=== PATIENT | female | born 1975 | race African-American/Black ===

== ENCOUNTER 2016-10-11 19:40 | Emergency (ER) | payer OTHER ==
[2016-10-11 19:46] VITALS: BP 124/75; PULSE 79; TEMP 97.9; BMI 31.1
--- NOTE | 2016-10-11 19:48 | PDOC ---
Rapid Medical Evaluation Time Seen by Provider: 10/11/16 19:42 Medical Evaluation: Allergies Allergy/AdvReac Type Severity Reaction Status Date / Time sulfamethoxazole Allergy Verified 06/24/13 19:20 [From Bactrim] trimethoprim [From Bactrim] Allergy Verified 06/24/13 19:20 10/11/16 19:42 I have performed a brief in-person evaluation of this patient. Ms Greene is a 41 yo F with no significant past medical history who presents to the ER with a complaint of sore throat. Pt started feeling ill 3 days ago but states the sore throat began 2 days ago Pt has had difficulty eating due to her throat pain She had noted blood tinged sputum (she denies cough) No changes in voice, no drooling Unsure if she has had a fever, did not take her temp Pertinent physical exam findings: Temp: 97.9 On examination, non tonsillar enlargement, pharynx injected Uvula midline, I have ordered the following: Rapid Strep The patient will proceed to [facility] for further evaluation.
--- NOTE | 2016-10-11 21:24 | PDOC ---
History of Present Illness - General Chief Complaint: Sore Throat Stated Complaint: SORE THROAT Time Seen by Provider: 10/11/16 19:42 History Source: Patient Exam Limitations: No Limitations - History of Present Illness Initial Comments: 10/11/16 21:19 c/o sore throat nasal congestion right ear pain. no meds taken [employer] no fever or chest pain . Timing/Duration: unsure (2-3 days) Past History - Past Medical History Allergies/Adverse Reactions: Allergies Allergy/AdvReac Type Severity Reaction Status Date / Time sulfamethoxazole Allergy Verified 10/11/16 19:43 [From Bactrim] trimethoprim [From Bactrim] Allergy Verified 10/11/16 19:43 Home Medications: Ambulatory Orders Triamcinolone Acetonide [Nasacort] 10.8 ml NS DAILY #1 bottle 10/11/16 Other medical history: denies - Psycho/Social/Smoking Cessation Hx Suicidal Ideation: No Smoking History: Never smoked Review of Systems - Review of Systems Able to Perform ROS?: Yes Is the patient limited Upper Sorbian proficient: No Constitutional: No: Symptoms Reported HEENTM: Yes: See HPI *Physical Exam - Vital Signs Last Vital Signs Temp Pulse Resp BP Pulse Ox 97.9 F 79 18 124/75 100 10/11/16 19:44 10/11/16 19:44 10/11/16 19:44 10/11/16 19:44 10/11/16 19:44 - Physical Exam General Appearance: Yes: Nourished, Appropriately Dressed HEENT: positive: EOMI, GUS, TMs Normal, Pharyngeal Erythema, Nasal Congestion ( post nasal drip), Other. negative: Tonsillar Exudate, Tonsillar Erythema Neck: positive: Supple. negative: Lymphadenopathy (R), Lymphadenopathy (L) Respiratory/Chest: positive: Lungs Clear, Normal Breath Sounds. negative: Chest Tender Cardiovascular: positive: Regular Rhythm, Regular Rate Gastrointestinal/Abdominal: positive: Normal Bowel Sounds, Soft Musculoskeletal: positive: Normal Inspection Extremity: positive: Normal Capillary Refill, Normal Inspection, Normal Range of Motion Integumentary: positive: Normal Color, Dry, Warm Neurologic: positive: Fully Oriented, Alert, Normal Mood/Affect, Normal Response , Motor Strength 5/5 ED Treatment Course - ADDITIONAL ORDERS Additional order review: 10/11/16 19:50 Group A Strep Rapid Antigen - Final Throat Medical Decision Making - Medical Decision Making 10/11/16 21:20 cc: sore throat, nasal congestion rapid strep is negative pt refused motrin will prescribe nasocort for congestion, post nasal drip *DC/Admit/Observation/Transfer Diagnosis at time of Disposition: Nasal sinus congestion Pharyngitis Qualifiers: Pharyngitis/tonsillitis etiology: unspecified etiology Qualified Code(s): J02.9 - Acute pharyngitis, unspecified - Discharge Dispostion Disposition: HOME Condition at time of disposition: Good - Prescriptions Prescriptions: Triamcinolone Acetonide [Nasacort] 10.8 ml NS DAILY #1 bottle - Patient Instructions Additional Instructions: gargle with warm salt water 4-5 times a day tea, honey and lemon is helpful for viruses in the throat take motrin 600mg every 6hrs for pain (over the counter ibuprofen, motrin or advil all the same) use the nasocort as directed follow with your medical doctor if not improving or worse in the next few days ice pops, jello,soft foods
== END 2016-10-11 21:27 | disposition home or self-care (01) ==
LOC: JERFT 19:40
DX: R09.89 Other specified symptoms and signs involving the circulatory and respiratory systems (principal); J02.9 Acute pharyngitis, unspecified
CPT/HCPCS: 87070; 87430; 99281-25

== ENCOUNTER 2017-02-04 11:16 | Emergency (ER) | payer OTHER ==
[2017-02-04 11:20] VITALS: BP 124/84; PULSE 60; TEMP 98.2; BMI 29.2
--- NOTE | 2017-02-04 11:43 | PDOC ---
History of Present Illness - General Chief Complaint: Urinary Problem Stated Complaint: urinary complaints Time Seen by Provider: 02/04/17 11:36 History Source: Patient Exam Limitations: No Limitations - History of Present Illness Initial Comments: 02/04/17 11:40 My Chief Complaint: pain with urination, frequency, urgency since yesterday History of Present Illness: She is a 41-year-old female with a history of urinary tract infections here today complaining of dysuria, frequency, hesitancy , and urgency since yesterday. Patient reports having her menstrual cycle presently. Patient denies any back pain, nausea, vomiting, or chills or fever. She denies any other symptoms. 02/04/17 12:02 Timing/Duration: getting worse Severity: moderate Associated Symptoms: reports: denies symptoms Past History - Past Medical History Allergies/Adverse Reactions: Allergies Allergy/AdvReac Type Severity Reaction Status Date / Time sulfamethoxazole Allergy Verified 02/04/17 11:17 [From Bactrim] trimethoprim [From Bactrim] Allergy Verified 02/04/17 11:17 Home Medications: Ambulatory Orders Ciprofloxacin [Cipro -] 250 mg PO BID #14 tablet 02/04/17 Other medical history: none - Psycho/Social/Smoking Cessation Hx Anxiety: No Suicidal Ideation: No Smoking History: Never smoked Have you smoked in the past 12 months: No Information on smoking cessation initiated: No Hx Alcohol Use: No Drug/Substance Use Hx: No Substance Use Type: None Review of Systems - Review of Systems Able to Perform ROS?: Yes Constitutional: No: Symptoms Reported HEENTM: No: Symptoms Reported Respiratory: No: Symptoms reported Cardiac (ROS): No: Symptoms Reported ABD/GI: No: Symptoms Reported : Yes: Dysuria, Frequency, Urgency. No: Other (hesitancy, has menses ) Musculoskeletal: No: Symptoms Reported Integumentary: No: Symptoms Reported Neurological: No: Symptoms reported *Physical Exam - Vital Signs Last Vital Signs Temp Pulse Resp BP Pulse Ox 98.2 F 60 18 124/84 100 02/04/17 11:18 02/04/17 11:18 02/04/17 11:18 02/04/17 11:18 02/04/17 11:18 - Physical Exam General Appearance: Yes: Appropriately Dressed Respiratory/Chest: positive: Lungs Clear, Normal Breath Sounds. negative: Chest Tender, Respiratory Distress Cardiovascular: positive: Regular Rhythm, Regular Rate, S1, S2 Gastrointestinal/Abdominal: positive: Normal Bowel Sounds, Soft. negative: Tender, Organomegaly, Distended, Guarding, Rebound, Tenderness, Hepatomegaly, Spleenomegaly Musculoskeletal: negative: CVA Tenderness, CVA Tenderness (R), CVA Tenderness (L ) Integumentary: positive: Normal Color Neurologic: positive: Alert, Normal Response, Responsive Medical Decision Making - Medical Decision Making 02/04/17 12:04 She is a 41-year-old female with a history of urinary tract infections here today complaining of dysuria, frequency, hesitancy, and urgency since yesterday. Patient reports having her menstrual cycle presently. Patient denies any back pain, nausea, vomiting, or chills or fever. She denies any other symptoms. 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
[2017-02-04 12:17] LABS: URINE APPEARANCE CLOUDY; URINE BILIRUBIN NEGATIVE (NEGATIVE); URINE COLOR YELLOW; URINE GLUCOSE (UA) NEGATIVE (NEGATIVE); URINE KETONE NEGATIVE (NEGATIVE); URINE NITRITE NEGATIVE (NEGATIVE); URINE UROBILINOGEN NEGATIVE E.U./dl (0.2-1.0)
[2017-02-04 12:18] LABS: URINE BLOOD 2+ (NEGATIVE); URINE LEUK ESTERASE 2+ (NEGATIVE); URINE PROTEIN 1+ (NEGATIVE)
[2017-02-04 12:32] LABS: URINE RBC 24 /hpf (0-3); URINE WBC 655 /hpf (3-5)
== END 2017-02-04 12:38 | disposition home or self-care (01) ==
LOC: JERFT 11:16
DX: N30.00 Acute cystitis without hematuria (principal)
CPT/HCPCS: 81003; 81015; 84703; 87086; 99281-25

== ENCOUNTER 2017-10-02 02:50 | Emergency (ER) | payer BC ==
--- NOTE | 2017-10-02 03:07 | PDOC ---
History of Present Illness - General Stated Complaint: ALLERGIC RX Time Seen by Provider: 10/02/17 02:59 - History of Present Illness Initial Comments: 10/02/17 03:19 42 yo F with no significant pmh who presents with airway irritation. Pt. reports acute onset SOB, difficulty swallowing, and hoarseness 1 hour [employer] following Bactrim use. Patient reports Bactim allergy, and inadvertently took 1 Bactrim DS tablet mistaking it for Ibuprofen. Immediately following ingestion she noticed development of widespread rash, and sensation of "throat swelling." She denies wheezing, lightheadedness, vision disturbance. Does not own epinephrine pen. Denies CP, cough, abdominal pain, urinary complaints, diarrhea , constipation, weakness, sensory changes. Past History - Past Medical History Allergies/Adverse Reactions: Allergies Allergy/AdvReac Type Severity Reaction Status Date / Time sulfamethoxazole Allergy Verified 10/02/17 03:08 [From Bactrim] trimethoprim [From Bactrim] Allergy Verified 10/02/17 03:08 Home Medications: Ambulatory Orders Diphenhydramine [Benadryl Capsule -] 25 mg PO TID #9 capsule 10/02/17 Prednisone [Deltasone] 40 mg PO DAILY #10 tablet MDD 2 tab 10/02/17 Ranitidine [Zantac -] 150 mg PO ONCE #5 tablet MDD 1 tab 10/02/17 - Suicide/Smoking/Psychosocial Hx Smoking History: Never smoked Have you smoked in the past 12 months: No Hx Alcohol Use: No Drug/Substance Use Hx: No Substance Use Type: None Review of Systems - Review of Systems Comments:: 10/02/17 03:01 GENERAL/CONSTITUTIONAL: No fever or chills. No weakness. HEAD, EYES, EARS, NOSE AND THROAT: No change in vision. No ear pain or discharge. No sore throat.- CARDIOVASCULAR: No chest pain or shortness of breath RESPIRATORY: + SOB. No cough, wheezing, or hemoptysis. GASTROINTESTINAL: No nausea, vomiting, diarrhea or constipation. GENITOURINARY: No dysuria, frequency, or change in urination. MUSCULOSKELETAL: No joint or muscle swelling or pain. No neck or back pain. SKIN: + Rash NEUROLOGIC: No headache, vertigo, loss of consciousness, or change in strength/ sensation. ENDOCRINE: No increased thirst. No abnormal weight change HEMATOLOGIC/LYMPHATIC: No anemia, easy bleeding, or history of blood clots. ALLERGIC/IMMUNOLOGIC: +hives *Physical Exam - Physical Exam Comments: 10/02/17 03:01 GENERAL: Awake, alert, and fully oriented, in no acute distress HEAD: No signs of trauma, normocephalic, atraumatic EYES: PERRLA, EOMI, sclera anicteric, conjunctiva clear ENT: Able to visualize soft palate and uvula, with absent laryngeal edema. Auricles normal inspection, hearing grossly normal, nares patent, oropharynx clear without. exudates. Moist mucosa. Absent tongue or mucosal swelling. NECK: Normal ROM, supple, no lymphadenopathy, JVD, or masses LUNGS: No distress, speaks full sentences, clear to auscultation bilaterally HEART: Regular rate and rhythm, normal S1 and S2, no murmurs, rubs or gallops, peripheral pulses normal and equal bilaterally. EXTREMITIES : Normal inspection, Normal range of motion, no edema. No clubbing or cyanosis. SKIN: Widespread urticarial rash on extremities, abdomen, trunk. Warm, Dry, normal turgor, Medical Decision Making - Medical Decision Making 10/02/17 03:34 42 yo F with no significant pmh who presents acute onset SOB, difficulty swallowing, and hoarseness 1 hour [employer] following DS Bactrim ingestion. Pt. mistook Bactrim for Ibuprofen. Complaint of widespread rash, and sensation of "throat swelling." Denies wheezing, CP, cough, vision change, abdominal pain, urinary complaints, diarrhea, constipation, lightheadedness, weakness, sensory changes. Does not own epinephrine pen. Hemodynamically stable. No evidence of tongue swelling, stridor, wheezing, or laryngeal edema, uvula midline, and absent facial involvement of rash. Patient voice is hoarse at bedside. Will administer epinephrine for concern of anaphylactic reaction. ED Course: Epinpehrine1:1000 Famotidine, Diphenyhydramine, Salumedrol, NS 10/02/17 04:33 Diphenyhydramine, Prednisone, and ranitidine sent to pharmacy. 10/02/17 04:33 Patient reports mild improvement in airway/resp difficulty. Patient stable with resolution of symptoms. Signed out to Dr. Ace. Waiting 6 hour observation period for d/c. *DC/Admit/Observation/Transfer Diagnosis at time of Disposition: Allergic reaction caused by a drug Qualifiers: Encounter type: initial encounter Qualified Code(s): T78.40XA - Allergy, unspecified, initial encounter - Discharge Dispostion Condition at time of disposition: Stable Admit: No - Prescriptions Prescriptions: Diphenhydramine [Benadryl Capsule -] 25 mg PO TID #9 capsule Prednisone [Deltasone] 40 mg PO DAILY #10 tablet MDD 2 tab Ranitidine [Zantac -] 150 mg PO ONCE #5 tablet MDD 1 tab - Referrals Referrals: Enrique Bland MD [Primary Care Provider] - - Patient Instructions Printed Discharge Instructions: DI for Adverse Drug Reaction -- Allergic Additional Instructions: Please return to the emergency department with any new or worsening symptoms or concerns. Please follow up with your primary care physician within 72 hours. Please take Benadryl every 8 hours, Prednisone 40 mg and ranitidine daily for 5 days. - Post Discharge Activity - Attestations Physician Attestion: 10/02/17 03:01 I attest to the information provided in this note.
[2017-10-02 03:10] VITALS: BMI 32.0
[2017-10-02] MEDS ORDERED: methylPREDNISolone NA SUCC 125 MG/2 ML VIAL IVPUSH ONE (03:16)
[2017-10-02] MEDS ORDERED: FAMOTIDINE IV 20 MG/12 ML VIAL IVPUSH ONE (03:16)
[2017-10-02] MEDS ORDERED: EPINEPHrine/PF 1 MG/1 ML (1:1,000) AMPULE ONE (03:16)
[2017-10-02] MEDS ORDERED: EPINEPHrine 1:1,000 0.3 MG/0.3 ML SYR IM ONE (03:16)
[2017-10-02] MEDS ORDERED: SODIUM CHLORIDE 1,000 ML IV STA (03:18)
[2017-10-02] MEDS ORDERED: EPINEPHrine/PF 1 MG/1 ML (1:1,000) AMPULE IM ONE (03:30)
[2017-10-02] MEDS ORDERED: methylPREDNISolone NA SUCC 125 MG/2 ML VIAL ONE (03:38)
[2017-10-02] MEDS ORDERED: FAMOTIDINE 20 MG/50 ML IVPB 20 MG/50 ML MG IVPB ONE (03:38)
--- NOTE | 2017-10-02 07:28 | PDOC ---
Attending Attestation - Resident Resident Name: Ayaan Trimble - ED Attending Attestation I have performed the following: I have examined & evaluated the patient, The case was reviewed & discussed with the resident, I agree w/resident's findings & plan, Exceptions are as noted - HPI HPI: 10/02/17 07:26 Seen immediately by me on arrvial to my district of the ER for anaphylaxis. 42yoF known bactrim allergy presnet after accidentally taking bactrim. + voice changes, coughing, difficulty breathing. exam w/ VSS hoarse voice no airway edema no wheezing no vomiting + diffuse urticaria A: anaphylactoid reaction to bactrim. - epi, solumedrol, benadryl, pepcid - ivf - 6h obs. - Physicial Exam PE: 10/02/17 07:28 as above - Critical Care Time Total Critical Care Time: 45 Critical Care Statement: The care of this patient involved high complexity decision making to prevent further life threatening deterioration of the patient 's condition and/or to evaluate & treat vital organ system(s) failure or risk of failure. - Medical Decision Making 10/02/17 07:28 as above
--- NOTE | 2017-10-02 09:47 | PDOC ---
*Physical Exam - Vital Signs Last Vital Signs Temp Pulse Resp BP Pulse Ox 97.6 F 81 17 111/70 97 10/02/17 03:08 10/02/17 08:00 10/02/17 08:00 10/02/17 08:00 10/02/17 08:00 - Physical Exam Comments: 10/02/17 09:45 GENERAL: Awake, alert, and fully oriented, in no acute distress HEAD: No signs of trauma, normocephalic, atraumatic EYES: PERRLA, EOMI, sclera anicteric, conjunctiva clear ENT: Auricles normal inspection, hearing grossly normal, nares patent, oropharynx clear without exudates. Moist mucosa LUNGS: No distress, speaks full sentences, clear to auscultation bilaterally HEART: Regular rate and rhythm, normal S1 and S2, no murmurs, rubs or gallops, peripheral pulses normal and equal bilaterally. ED Treatment Course - Medications Given in the ED: ED Medications Discontinued Medications Generic Name Dose Route Start Last Admin Trade Name Freq PRN Reason Stop Dose Admin Diphenhydramine HCl 50 mg 10/02/17 03:16 10/02/17 04:01 Benadryl Injection - IVPUSH 10/02/17 03:17 50 mg ONCE ONE Administration Epinephrine HCl 500 mcg 10/02/17 03:30 10/02/17 03:30 Epinephrine 1:1000 P/F - IM 10/02/17 03:31 500 mcg ONCE ONE Administration Famotidine 20 mg in 12 mls @ 144 mls/hr 10/02/17 03:16 10/02/17 05:10 Pepcid 20 Mg/12 Ml Push IVPUSH 10/02/17 03:20 144 mls/hr ONCE ONE Administration Sodium Chloride 1,000 mls @ 1,000 mls/hr 10/02/17 03:18 10/02/17 04:01 Normal Saline - IV 10/02/17 04:17 1,000 mls/hr ASDIR STA Administration Methylprednisolone Sodium Succinate 125 mg 10/02/17 03:16 10/02/17 04:01 Solu-Medrol - IVPUSH 10/02/17 03:17 125 mg ONCE ONE Administration Medical Decision Making - Medical Decision Making 10/02/17 09:[address] Trimble. Patient had allergic reaction from bactrim. Patient states that she now feels much better. Will discharge home with PCP follow up and return precautions. Patient has outpatient medications already ordered. *DC/Admit/Observation/Transfer Diagnosis at time of Disposition: Allergic reaction caused by a drug Qualifiers: Encounter type: initial encounter Qualified Code(s): T78.40XA - Allergy, unspecified, initial encounter - Discharge Dispostion Disposition: HOME Condition at time of disposition: Good Admit: No - Prescriptions Prescriptions: Diphenhydramine [Benadryl Capsule -] 25 mg PO TID #9 capsule Prednisone [Deltasone] 40 mg PO DAILY #10 tablet MDD 2 tab Ranitidine [Zantac -] 150 mg PO ONCE #5 tablet MDD 1 tab - Referrals Referrals: Enrique Bland MD [Primary Care Provider] - - Patient Instructions Printed Discharge Instructions: DI for Adverse Drug Reaction -- Allergic Additional Instructions: Please return to the emergency department with any new or worsening symptoms or concerns. Please follow up with your primary care physician within 72 hours. Please take Benadryl every 8 hours, Prednisone 40 mg and ranitidine daily for 5 days. - Post Discharge Activity Forms/Work/School Notes: Back to Work
[2017-10-02 10:16] VITALS: BP 117/50; PULSE 82; TEMP 98.6
== END 2017-10-02 10:16 | disposition home or self-care (01) ==
LOC: JER 02:50 → UNDOADMOB 05:41 → JERBED 05:41 → JER 10:16
PROC: 3E033GC Introduction of Other Therapeutic Substance into Peripheral Vein, Percutaneous Approach (ICD-10-PCS; principal; 2017-10-02)
PROC: 3E0337Z Introduction of Electrolytic and Water Balance Substance into Peripheral Vein, Percutaneous Approach (ICD-10-PCS; 2017-10-02)
PROC: 3E023GC Introduction of Other Therapeutic Substance into Muscle, Percutaneous Approach (ICD-10-PCS; 2017-10-02)
DX: T78.40XA Allergy, unspecified, initial encounter (principal)
CPT/HCPCS: 99282-25

== ENCOUNTER 2017-10-16 23:02 | Emergency (ER) | payer BC ==
[2017-10-16 23:11] VITALS: BP 130/80; PULSE 70; TEMP 97.8; BMI 32.9
[2017-10-17 00:36] LABS: HEMATOCRIT 40.4 % (32.4-45.2); HEMOGLOBIN 13.9 GM/dL (10.7-15.3); LYMPH % 35.6 % (8-40); MCH 32.7 pg (25.7-33.7); MCHC 34.4 g/dl (32.0-36.0); MEAN CELL VOLUME 95.2 fl (80-96); MONO % 7.5 % (3.8-10.2); NEUT % 53.9 % (42.8-82.8); PLATELET COUNT 246 K/MM3 (134-434); RBC 4.25 M/mm3 (3.60-5.2); RDW 12.4 % (11.6-15.6); WHITE BLOOD COUNT 6.3 K/mm3 (4.0-10.0)
[2017-10-17 01:01] LABS: URINE APPEARANCE CLEAR; URINE BILIRUBIN NEGATIVE (NEGATIVE); URINE BLOOD 2+ (NEGATIVE); URINE COLOR YELLOW; URINE GLUCOSE (UA) NEGATIVE (NEGATIVE); URINE KETONE NEGATIVE (NEGATIVE); URINE LEUK ESTERASE TRACE (NEGATIVE); URINE NITRITE NEGATIVE (NEGATIVE); URINE PROTEIN NEGATIVE (NEGATIVE); URINE UROBILINOGEN NEGATIVE mg/dL (0.2-1.0)
[2017-10-17 01:05] LABS: EPI CELLS RARE /HPF (FEW); URINE MUCUS FEW
[2017-10-17 01:15] LABS: HCG,QUALITATIVE URINE NEGATIVE
--- NOTE | 2017-10-17 01:31 | PDOC ---
History of Present Illness <Debbie Rea Agueda - Last Filed: 10/17/17 01:29> - General History Source: Patient Exam Limitations: No Limitations - History of Present Illness Initial Comments: 10/17/17 01:32 The patient is a 42 year old female who is approximately 5 weeks by LMP and at home tests who presents to the ED complaining of mild vaginal bleeding that began tonight. She states she noticed a moderate amount of bleeding today. Denies recent history of late periods. No fever or chills. No nausea, vomiting, or diarrhea. No urinary complaints. <Kaya Rubio - Last Filed: 10/17/17 01:35> - General Chief Complaint: Vaginal Bleeding Stated Complaint: VAGINAL BLEEDING (5 WKS ) Time Seen by Provider: 10/16/17 23:45 Past History - Past Medical History COPD: No Other medical history: Pt denies - Suicide/Smoking/Psychosocial Hx Smoking History: Never smoked Have you smoked in the past 12 months: No Information on smoking cessation initiated: No Hx Alcohol Use: No Drug/Substance Use Hx: No Substance Use Type: None <Jacoby Reajamel Romeo - Last Filed: 10/17/17 01:29> <Kaya Rubio - Last Filed: 10/17/17 01:35> - Past Medical History Allergies/Adverse Reactions: Allergies Allergy/AdvReac Type Severity Reaction Status Date / Time sulfamethoxazole Allergy Verified 10/16/17 23:08 [From Bactrim] trimethoprim [From Bactrim] Allergy Verified 10/16/17 23:08 Home Medications: Ambulatory Orders Diphenhydramine [Benadryl Capsule -] 25 mg PO TID #9 capsule 10/02/17 Prednisone [Deltasone] 40 mg PO DAILY #10 tablet MDD 2 tab 10/02/17 Ranitidine [Zantac -] 150 mg PO ONCE #5 tablet MDD 1 tab 10/02/17 Review of Systems - Review of Systems Able to Perform ROS?: Yes Comments:: 10/17/17 01:34 GENERAL/CONSTITUTIONAL: No fever or chills. No weakness. HEAD, EYES, EARS, NOSE AND THROAT: No change in vision. No ear pain or discharge. No sore throat. CARDIOVASCULAR: No chest pain or shortness of breath. RESPIRATORY: No cough, wheezing, or hemoptysis. GASTROINTESTINAL: No nausea, vomiting, diarrhea or constipation. GENITOURINARY: +Vaginal bleeding. No dysuria, frequency, or change in urination. MUSCULOSKELETAL: No joint or muscle swelling or pain. No neck or back pain. SKIN: No rash NEUROLOGIC: No headache, vertigo, loss of consciousness, or change in strength/ sensation. ENDOCRINE: No increased thirst. No abnormal weight change. HEMATOLOGIC/LYMPHATIC: No anemia, easy bleeding, or history of blood clots. ALLERGIC/IMMUNOLOGIC: No hives or skin allergy. <Kaya Rubio - Last Filed: 10/17/17 01:35> *Physical Exam - Vital Signs Last Vital Signs Temp Pulse Resp BP Pulse Ox 97.8 F 70 18 130/80 98 10/16/17 23:08 10/16/17 23:08 10/16/17 23:08 10/16/17 23:08 10/16/17 23:08 <Debbie Rea - Last Filed: 10/17/17 01:29> - Vital Signs Last Vital Signs Temp Pulse Resp BP Pulse Ox 97.8 F 70 18 130/80 98 10/16/17 23:08 10/16/17 23:08 10/16/17 23:08 10/16/17 23:08 10/16/17 23:08 - Physical Exam Comments: 10/17/17 01:35 GENERAL: Awake, alert, and fully oriented, in no acute distress HEAD: No signs of trauma EYES: PERRLA, EOMI, sclera anicteric, conjunctiva clear ENT: Auricles normal inspection, nares patent. Moist mucosa NECK: Normal ROM, supple, no JVD, or masses LUNGS: Breath sounds equal, clear to auscultation bilaterally. No wheezes, and no crackles HEART: Regular rate and rhythm, normal S1 and S2, no murmurs, rubs or gallops ABDOMEN: Soft, nontender, normoactive bowel sounds. No guarding, no rebound. No masses EXTREMITIES: Normal range of motion, no edema. No clubbing or cyanosis. No cords, erythema, or tenderness NEUROLOGICAL: Alert and oriented x 3. Moves all extremities. Face is symmetric. SKIN: Warm, Dry, normal turgor, no rashes or lesions noted. <Kaya Rubio - Last Filed: 10/17/17 01:35> ED Treatment Course - LABORATORY CBC & Chemistry Diagram: 10/17/17 00:30 - ADDITIONAL ORDERS Additional order review: Laboratory Results 10/17/17 10/17/17 00:47 00:30 Beta HCG, Quant < 1.0 Urine Color Yellow Urine Appearance Clear Urine pH 6.0 Ur Specific [place] 1.020 Urine Protein Negative Urine Glucose (UA) Negative Urine Ketones Negative Urine Blood 2+ H Urine Nitrite Negative Urine Bilirubin Negative Urine Urobilinogen Negative Ur Leukocyte Esterase Trace Urine WBC (Auto) 15 Urine RBC (Auto) 98 Ur Epithelial Cells Rare Urine Mucus Few Urine HCG, Qual Negative 10/17/17 00:30 RBC 4.25 MCV 95.2 MCHC 34.4 RDW 12.4 MPV 9.0 Neutrophils % 53.9 Lymphocytes % 35.6 Monocytes % 7.5 Eosinophils % 2.0 Basophils % 1.0 <Debbie Rea - Last Filed: 10/17/17 01:29> - LABORATORY CBC & Chemistry Diagram: 10/17/17 00:30 - ADDITIONAL ORDERS Additional order review: Laboratory Results 10/17/17 10/17/17 00:47 00:30 Beta HCG, Quant < 1.0 Urine Color Yellow Urine Appearance Clear Urine pH 6.0 Ur Specific [place] 1.020 Urine Protein Negative Urine Glucose (UA) Negative Urine Ketones Negative Urine Blood 2+ H Urine Nitrite Negative Urine Bilirubin Negative Urine Urobilinogen Negative Ur Leukocyte Esterase Trace Urine WBC (Auto) 15 Urine RBC (Auto) 98 Ur Epithelial Cells Rare Urine Mucus Few Urine HCG, Qual Negative 10/17/17 00:30 RBC 4.25 MCV 95.2 MCHC 34.4 RDW 12.4 MPV 9.0 Neutrophils % 53.9 Lymphocytes % 35.6 Monocytes % 7.5 Eosinophils % 2.0 Basophils % 1.0 <Kaya Rubio - Last Filed: 10/17/17 01:35> *DC/Admit/Observation/Transfer <Debbie Rea - Last Filed: 10/17/17 01:29> - Attestations Scribe Attestion: 10/17/17 01:35 Documentation prepared by Kaya Rubio, acting as medical representative for Debbie Rea MD. <Kaya Rubio - Last Filed: 10/17/17 01:35> Diagnosis at time of Disposition: Vaginal bleeding between periods - Discharge Dispostion Disposition: HOME Condition at time of disposition: Stable - Referrals Referrals: Enrique Bland MD [Primary Care Provider] - - Patient Instructions Printed Discharge Instructions: DI for Vaginal Bleeding Additional Instructions: please follow up with your chemical sales representative if you have any further concerns - Post Discharge Activity
== END 2017-10-17 01:35 | disposition home or self-care (01) ==
LOC: JER 23:02
DX: N92.0 Excessive and frequent menstruation with regular cycle (principal)
CPT/HCPCS: 36415; 81003; 81015; 84702; 84703; 85025; 86850; 86900; 86901; 99281-25; 99283-25

== ENCOUNTER 2017-12-27 19:54 | Emergency (ER) | payer BC ==
[2017-12-27 20:05] VITALS: BP 123/76; PULSE 67; TEMP 98.7; BMI 31.1
--- NOTE | 2017-12-27 20:05 | PDOC ---
Rapid Medical Evaluation Time Seen by Provider: 12/27/17 20:00 Medical Evaluation: Allergies Allergy/AdvReac Type Severity Reaction Status Date / Time sulfamethoxazole Allergy Verified 10/16/17 23:08 [From Bactrim] trimethoprim [From Bactrim] Allergy Verified 10/16/17 23:08 I have performed a brief in-person evaluation of this patient. The patient presents with a chief complaint of: left foot swelling x 2 weeks. Does not improve with elevation. ELISABETH bandage did help. Pertinent physical exam findings: non pitting edema to left foot. 1+ pitting edema to left lower leg 1/3 up calf. No calf pain. Negative Rodri's sign. Left lower extremity is not cyanotic, cool, hot, erythematous. I have ordered the following: nothing The patient will proceed to the ED for further evaluation. Discharge Disposition - Diagnosis Leg swelling - Referrals - Patient Instructions - Post Discharge Activity
--- NOTE | 2017-12-27 20:38 | PDOC ---
History of Present Illness - General Chief Complaint: Edema Stated Complaint: LT LEG SWELLING Time Seen by Provider: 12/27/17 20:00 History Source: Patient - History of Present Illness Initial Comments: 12/27/17 21:04 Chief complaint: Leg swelling Patient is a 42-year-old female with no significant medical problems who came here for leg swelling, left. She states this is on and off problem since she had her son 10 years ago. Patient denies any fever, shortness of breath or chest pain. She's been trying to go to her regular doctor to get an ultrasound. Patient is not sure if she injured her foot or ankle. Patient is ambulatory. pt has recent blood work. has been trying to get . states all blood work normal GENERAL/CONSTITUTIONAL: No fever, weakness. dizziness HEAD, EYES, EARS, NOSE AND THROAT: No change in vision. No ear pain or discharge. No sore throat. CARDIOVASCULAR: No chest pain RESPIRATORY: No shortness of breath or cough GASTROINTESTINAL: No pain, nausea, vomiting, diarrhea or constipation GENITOURINARY: No dysuria MUSCULOSKELETAL: No neck or back pain, + left leg swelling SKIN: No rash NEUROLOGIC: No headache, vertigo, loss of consciousness, or loss of sensation. GENERAL: The patient is awake, alert, and fully oriented, in no acute distress. HEAD: Normal with no signs of trauma. EYES: Pupils equal, round and reactive to light, sclera anicteric, conjunctiva clear. ENT: pharynx: no erythema, no exudate, uvula midline NECK: supple CHEST: clear, nontender, rr ABD: soft, nontender EXTREMITIES: Left lower extremity with pitting edema to the foot, minimal edema to the ankle up one third into the lower leg, no calf tenderness or Homans sign. Neurovascular intact. + Tenderness to the lateral aspect of the foot. Rest of extremities, normal range of motion, no edema. NEUROLOGICAL: Normal speech, normal gait. SKIN: Warm, Dry 12/27/17 21:23 Past History - Past Medical History Allergies/Adverse Reactions: Allergies Allergy/AdvReac Type Severity Reaction Status Date / Time sulfamethoxazole Allergy Verified 12/27/17 20:05 [From Bactrim] trimethoprim [From Bactrim] Allergy Verified 12/27/17 20:05 Home Medications: Ambulatory Orders NK [No Known Home Medication] 12/27/17 COPD: No - Suicide/Smoking/Psychosocial Hx Smoking History: Never smoked Have you smoked in the past 12 months: No Information on smoking cessation initiated: No Hx Alcohol Use: No Drug/Substance Use Hx: No Substance Use Type: None *Physical Exam - Vital Signs Last Vital Signs Temp Pulse Resp BP Pulse Ox 98.7 F 67 16 123/76 100 12/27/17 20:04 12/27/17 20:04 12/27/17 20:04 12/27/17 20:04 12/27/17 20:04 Medical Decision Making - Medical Decision Making 12/27/17 21:19 Patient with left foot and leg swelling, on and off for the past 10 years but now has gotten persistent recently patient concerned has had recent blood work because she is trying to get and states all her poor blood work is normal. Will get x-rays and ultrasound and reassess *DC/Admit/Observation/Transfer Diagnosis at time of Disposition: Leg swelling - Discharge Dispostion Disposition: HOME Condition at time of disposition: Stable - Referrals Referrals: Enrique Bland MD [Primary Care Provider] - - Patient Instructions Additional Instructions: elevate, wear compression stockings. follow up with your doctor Return to the ER if fever, shortness of breath or chest pain. - Post Discharge Activity
== END 2017-12-27 21:27 | disposition home or self-care (01) ==
LOC: JERFT 19:54
DX: R60.0 Localized edema (principal)
CPT/HCPCS: 73610-TC-LT-FY; 73630-TC-LT; 93971-TC; 99281-25

== ENCOUNTER 2019-02-17 18:11 | Emergency (ER) | payer BC ==
--- NOTE | 2019-02-17 18:16 | PDOC ---
Rapid Medical Evaluation Time Seen by Provider: 02/17/19 18:14 Medical Evaluation: Allergies Allergy/AdvReac Type Severity Reaction Status Date / Time sulfamethoxazole Allergy Verified 02/17/19 18:14 [From Bactrim] trimethoprim [From Bactrim] Allergy Verified 02/17/19 18:14 02/17/19 18:14 I have performed a brief in-person evaluation of this patient. The patient presents with a chief complaint of: LUQ "muscle separation" Pertinent physical exam findings: gravid abdomen I have ordered the following: nothing The patient will proceed to the ED for further evaluation. Discharge Disposition - Diagnosis LUQ abdominal pain - Referrals - Patient Instructions - Post Discharge Activity
[2019-02-17 18:18] VITALS: BP 123/69; PULSE 88; TEMP 98.1; BMI 33.0
--- NOTE | 2019-02-17 21:59 | PDOC ---
Documentation entered by Isabelle Mauro SCRIBE, acting as scribe for Debbie Rea MD. Debbie Rea MD: This documentation has been prepared by the Zunilda almendarez Xhesika, SCRIBE, under my direction and personally reviewed by me in its entirety. I confirm that the documentation accurately reflects all work, treatment, procedures, and medical decision making performed by me. History of Present Illness - General Chief Complaint: Pain, Acute Stated Complaint: 18WKS/ PAIN Time Seen by Provider: 02/17/19 18:14 History Source: Patient Exam Limitations: No Limitations - History of Present Illness Initial Comments: 02/17/19 21:51 The patient is a 43 year old female, , 18 weeks with a significant PMH of L foot lymphedema who presents to the emergency department with 2 weeks of soft tissue discomfort adjacent to her umbilicus. Patient notes she spoke to her [employer] Dr. Hightower and was advised her to come to the ED. The patient describes the pain as positional, 10/10, worsened at night and while laying down that feels like her ligaments are being ripped. Pt notes her last US was on 02/07 and was normal. Her next [employer] appointment is on 02/26/19. The patient denies cramping, vaginal bleeding, chest pain, shortness of breath , headache and dizziness. Denies fever, chills, nausea, vomiting, diarrhea and constipation. Denies dysuria, frequency, urgency and hematuria. Allergies: sulfamethoxazole, trimethoprim Past surgical history: 1 [employer]: Dr. Hightower -[facility] Past History - Past Medical History Allergies/Adverse Reactions: Allergies Allergy/AdvReac Type Severity Reaction Status Date / Time sulfamethoxazole Allergy Verified 02/17/19 18:14 [From Bactrim] trimethoprim [From Bactrim] Allergy Verified 02/17/19 18:14 Home Medications: Ambulatory Orders Acetaminophen [Tylenol -] 500 mg PO PRN PRN 02/17/19 Vit No.129/Iron/Folic [ One Daily Tablet] 1 each PO DAILY 02/17 COPD: No - Immunization History Immunization Up to Date: Yes - Suicide/Smoking/Psychosocial Hx Smoking History: Never smoked Have you smoked in the past 12 months: No Hx Alcohol Use: No Drug/Substance Use Hx: No Substance Use Type: None Review of Systems - Review of Systems Able to Perform ROS?: Yes Comments:: 02/17/19 21:52 GENERAL/CONSTITUTIONAL: No fever or chills. No weakness. HEAD, EYES, EARS, NOSE AND THROAT: No change in vision. No ear pain or discharge. No sore throat. CARDIOVASCULAR: No chest pain or shortness of breath. RESPIRATORY: No cough, wheezing, or hemoptysis. GASTROINTESTINAL: No nausea, vomiting, diarrhea or constipation. GENITOURINARY: No dysuria, frequency, or change in urination. MUSCULOSKELETAL: (+)soft tissue discomfort adjacent to her umbilicus. No joint or muscle swelling or pain. No neck or back pain. SKIN: No rash NEUROLOGIC: No headache, vertigo, loss of consciousness, or change in strength/ sensation. ENDOCRINE: No increased thirst. No abnormal weight change. HEMATOLOGIC/LYMPHATIC: No anemia, easy bleeding, or history of blood clots. ALLERGIC/IMMUNOLOGIC: No hives or skin allergy. *Physical Exam - Vital Signs Last Vital Signs Temp Pulse Resp BP Pulse Ox 98.1 F 88 18 123/69 100 02/17/19 18:15 02/17/19 18:15 02/17/19 18:15 02/17/19 18:15 02/17/19 18:15 - Physical Exam Comments: 02/17/19 21:51 GENERAL: Awake, alert, and fully oriented, in no acute distress HEAD: No signs of trauma EYES: PERRLA, EOMI, sclera anicteric, conjunctiva clear ENT: Auricles normal inspection, hearing grossly normal, nares patent, oropharynx clear without exudates. Moist mucosa NECK: Normal ROM, supple, no lymphadenopathy, JVD, or masses LUNGS: Breath sounds equal, clear to auscultation bilaterally. No wheezes, and no crackles HEART: Regular rate and rhythm, normal S1 and S2, no murmurs, rubs or gallops ABDOMEN:(+) gravid protuberant belly. (+) L periumbilical tenderness Soft, normoactive bowel sounds. No guarding, no rebound. No masses EXTREMITIES: Normal range of motion, no edema. No clubbing or cyanosis. No cords, erythema, or tenderness NEUROLOGICAL: Cranial nerves II through XII grossly intact. Normal speech, normal gait SKIN: Warm, Dry, normal turgor, no rashes or lesions noted. Medical Decision Making - Medical Decision Making 02/17/19 22:25 abdominal ultrasound of the area adjacent to the umbilicus that has been causing pain : Soft tissue ultrasound of that area was negative for any pathology 02/17/19 22:34 this 43-year-old female reports being 18 weeks and her last [employer] appointment was February 07. Her next [employer] appointment is February 25. She does not have any abdominal cramping. She does not have vaginal bleeding. She does not have nausea, vomiting, diarrhea, diarrhea, dysuria, fever or chills She came in today because she's had this annoying ache to the left of her umbilicus that is tender when she lays supine at nighttime started about 2 live 10thand has been intermittent since then. She denied any history of trauma *DC/Admit/Observation/Transfer Diagnosis at time of Disposition: LUQ abdominal pain - Referrals Referrals: Enrique Bland MD [Primary Care Provider] - - Patient Instructions - Post Discharge Activity
== END 2019-02-17 23:05 | disposition home or self-care (01) ==
LOC: JER 18:11
DX: O26.892 Other specified pregnancy related conditions, second trimester (principal); R10.12 Left upper quadrant pain
CPT/HCPCS: 76705-TC; 99282-25